=== PATIENT | female | born 1985 | race Caucasian/White ===

== ENCOUNTER 2018-09-04 03:15 | Inpatient (IN) | END 2018-09-06 15:40 | disposition home or self-care (01) | DRG 768 ==

== ENCOUNTER 2019-08-04 16:57 | Inpatient (IN) | payer OTHER ==
[~2019-08-04] VITALS: Ht 165.1 cm; Wt 68.2 kg
[~2019-08-04 16:57] MED LIST: PREN-19 PO
[2019-08-04] MEDS ORDERED: LACTATED RINGER'S 1,000 ML IV SCH ×2 (21:13→21:16)
[2019-08-04] MEDS ORDERED: LIDOCAINE 1% (MPF) 30 ML INJ INJ PRN (21:30)
[2019-08-04] MEDS ORDERED: CARBOPROST 250 MCG INJ IM PRN (21:30)
[2019-08-04] MEDS ORDERED: METHYLERGONOVINE 0.2 MG INJ IM PRN (21:30)
[2019-08-04] MEDS ORDERED: IBUPROFEN 600 MG TAB PO PRN (21:30)
[2019-08-04] MEDS ORDERED: MISOPROSTOL 200 MCG TAB PR PRN (21:30)
[2019-08-04] MEDS ORDERED: OXYTOCIN 30 UNITS/LR 500 ML IV SCH ×2 (21:30)
[2019-08-04] MEDS ORDERED: OXYTOCIN 30 UNITS/LR 500 ML IV PRN (21:30)
[2019-08-04] MEDS ORDERED: BUTORPHANOL 2 MG INJ IV PRN (21:30)
[2019-08-04 23:17] VITALS: Ht 165.1 cm; Wt 68.2 kg
[2019-08-05] MEDS: DEXTROSE 5%-LR 1,000 ML IV SCH ×2 (06:17→17:30)
[2019-08-05] MEDS ORDERED: FENTAnyl 2MCG/ML-ROPIV 0.2% 100 ML ONE (07:42)
[2019-08-05] MEDS ORDERED: MINERAL OIL LIGHT 10 ML VIAL TOP ONE (08:30)
[2019-08-05] MEDS ORDERED: OXYTOCIN 30 UNITS/LR 500 ML IV SCH (09:00)
[2019-08-05 09:52] VITALS: BP 119/68; PULSE 79; RESP 20
[2019-08-05] MEDS ORDERED: ONDANSETRON 4 MG INJ IV PRN (15:00)
[2019-08-05] MEDS ORDERED: HYDROmorphONE 0.5 MG/0.5 ML SYG IV PRN ×2 (15:00)
[2019-08-05] MEDS ORDERED: KETOROLAC 30 MG INJ IV PRN (15:00)
[2019-08-05] MEDS ORDERED: FENTAnyl 2MCG/ML-ROPIV 0.2% 100 ML BAG EPI SCH (15:00)
[2019-08-05] MEDS ORDERED: NALOXONE (0.4 MG/ML) INJ IV PRN (15:00)
[2019-08-05] MEDS ORDERED: DIPHENHYDRAMINE 50 MG INJ IV PRN (15:00)
[2019-08-05] MEDS ORDERED: LABETALOL HCL 20MG INJ IV STA (15:36)
[2019-08-05] MEDS ORDERED: OXYTOCIN 10 UNIT INJ ONE (18:06)
[2019-08-05 21:45] VITALS: BP 142/79; PULSE 88; RESP 18
[2019-08-05] MEDS ORDERED: CARBOPROST 250 MCG INJ IM PRN (22:30)
[2019-08-05] MEDS ORDERED: MISOPROSTOL 200 MCG TAB PR PRN (22:30)
[2019-08-05] MEDS ORDERED: DIBUCAINE 1% 30 GM OINT TOP PRN (22:30)
[2019-08-05] MEDS ORDERED: ACETAMINOPHEN 325 MG TAB PO PRN (22:30)
[2019-08-05] MEDS ORDERED: HYDROCODONE/APAP (5/325) TAB PO PRN (22:30)
[2019-08-05] MEDS ORDERED: OXYTOCIN 30 UNITS/LR 500 ML IV PRN (22:30)
[2019-08-05] MEDS: WITCH HAZEL/GLYCERIN PAD PR PRN (23:44)
[2019-08-05] MEDS: SENNA/DOCUSATE NA (8.6MG/50MG) TAB PO SCH (23:44)
[2019-08-05] MEDS: BENZOCAINE 20% 56 ML SPRAY TOP PRN (23:44)
[2019-08-05] MEDS: IBUPROFEN 600 MG TAB PO SCH (23:44)
[2019-08-06] VITALS: BP 138/71; PULSE 80; RESP 18
[2019-08-06] MEDS: LACTATED RINGER'S 1,000 ML IV* SCH ×3 (02:31→14:21)
[2019-08-06 04:13] VITALS: BP 120/67; PULSE 84; RESP 18
[2019-08-06] MEDS: IBUPROFEN 600 MG TAB PO SCH ×3 (05:47→17:20)
[2019-08-06 07:45] VITALS: BP 120/66; PULSE 83; RESP 18
[2019-08-06] MEDS: SENNA/DOCUSATE NA (8.6MG/50MG) TAB PO SCH ×2 (09:55→20:56)
[2019-08-06 11:35] VITALS: BP 125/73; PULSE 85; RESP 18
[2019-08-06 16:33] VITALS: BP 126/74; PULSE 111; RESP 18
[2019-08-06 19:45] VITALS: BP 136/88; PULSE 105; RESP 18
[2019-08-06] MEDS: WITCH HAZEL/GLYCERIN PAD PR PRN (22:07)
[2019-08-06] MEDS: BENZOCAINE 20% 56 ML SPRAY TOP PRN (22:08)
[2019-08-07] MEDS: IBUPROFEN 600 MG TAB PO SCH ×2 (00:39→08:30)
[2019-08-07 04:15] VITALS: BP 137/84; PULSE 82; RESP 20
[2019-08-07 08:00] VITALS: BP 123/76; PULSE 80; RESP 16
[2019-08-07] MEDS: SENNA/DOCUSATE NA (8.6MG/50MG) TAB PO SCH (08:29)
[2019-08-07] MEDS ORDERED: DIPHTH/TET/ACEL PERTUSS (ADULT) 0.5 ML VIAL IM* ONE (09:00)
== END 2019-08-07 14:10 | disposition home or self-care (01) | DRG 807 ==
LOC: OBT 16:57 → L-D 16:59 → OBT 20:22 → L-D 20:22 → PP1 08-05 21:39
PROVIDERS: ADMIT Obstetrics & Gynecology; ATTEND Obstetrics & Gynecology
PROC: 10E0XZZ Delivery of Products of Conception, External Approach (ICD-10-PCS; principal; 2019-08-05)
PROC: 0KQM0ZZ Repair Perineum Muscle, Open Approach (ICD-10-PCS; 2019-08-05)
DX: O13.4 Gestational [pregnancy-induced] hypertension without significant proteinuria, complicating childbirth (principal); Z37.0 Single live birth; O24.429 Gestational diabetes mellitus in childbirth, unspecified control; O69.81X0 Labor and delivery complicated by cord around neck, without compression, not applicable or unspecified; O70.1 Second degree perineal laceration during delivery; R20.0 Anesthesia of skin; Z3A.38 38 weeks gestation of pregnancy
CPT/HCPCS: 62322; 76815; 76818; 80053; 81001; 82962; 84560; 85025; 85610; 85730; 86592; 86850; 86900; 86901; 87340; 99464; G0463; J2590; J3010; J7120; J7121